=== PATIENT | male | born 1955 | race Hispanic/Latino ===

== ENCOUNTER 2017-01-15 06:21 | Observation (INO) | payer OTHER ==
[2017-01-15 06:37] VITALS: BMI 39.0
[2017-01-15] MEDS ORDERED: Lidocaine 1% w Epi 1:100,000 Inj ONE (07:12)
[2017-01-15] MEDS ORDERED: Thrombin Topical 5,000 IU Spray Kit ONE (07:12)
[2017-01-15] MEDS ORDERED: Bupivacaine 0.25%-Epinephrine 1:200,000 (30 ml) Inj ONE (07:12)
[2017-01-15] MEDS ORDERED: Bupivacaine 0.5% Inj(30mL) ONE (07:12)
[2017-01-15] MEDS ORDERED: Absorbable Gelatin Sponge Size 100 ONE (07:12)
[2017-01-15] MEDS ORDERED: Propofol 10 mg/ml Inj (20 ML) ONE ×11 (07:46→15:25)
[2017-01-15] MEDS ORDERED: Succinylcholine 200 mg/10 ml Inj IV ONE (07:47)
[2017-01-15] MEDS ORDERED: Midazolam 2 MG/2 ML VIAL ONE ×3 (07:47→12:27)
[2017-01-15] MEDS ORDERED: Lidocaine Hydrochloride 5 ML INJ ONE (07:49)
[2017-01-15] MEDS ORDERED: Remifentanil 2 MG PDS IV ONE ×5 (08:12→16:09)
[2017-01-15] MEDS ORDERED: Lactated Ringer's 1,000 ML IV ONE ×4 (08:30→13:49)
[2017-01-15] MEDS ORDERED: ePHEDrine 50 mg/ml Inj ONE (09:21)
[2017-01-15] MEDS ORDERED: Thrombin Topical 5,000 IU Spray Kit TOP ONE (11:39)
[2017-01-15] MEDS ORDERED: Absorbable Gelatin Sponge Size 100 TP ONE (11:39)
[2017-01-15] MEDS: Vancomycin 500 mg Inj IVPB ONE ×2 (12:15→16:45)
[2017-01-15] MEDS ORDERED: Desflurane Inhalation Anesthetic Liq (240 ml) ONE (13:07)
[2017-01-15] MEDS ORDERED: Dexamethasone 4 mg/1 ml ONE ×3 (13:14→17:16)
[2017-01-15] MEDS ORDERED: APROTININ/FIBRINOGEN(TISSEEL) ONE ×2 (13:32→13:46)
[2017-01-15] MEDS ORDERED: Sodium Chloride 0.9% 1,000 ML IV ONE ×2 (13:49→14:05)
[2017-01-15] MEDS ORDERED: Liquid Adhesive TOP ONE (14:01)
[2017-01-15] MEDS ORDERED: Sodium Chloride 0.9% 500 ML IV ONE (16:30)
[2017-01-15] MEDS ORDERED: Lidocaine 1% Inj (20ml) ONE (16:47)
--- NOTE | 2017-01-15 17:19 | RAD ---
PROCEDURE: Intraoperative Fluoroscopy. HISTORY: FUSION FINDINGS: Fluoroscopic assistance was provided. Please refer to the operative report for additional details.
[2017-01-15] MEDS ORDERED: HYDROmorphone 0.5 mg/0.5 ml ISec ONE (17:59)
[2017-01-15] MEDS: HYDROmorphone 0.5 mg/0.5 ml ISec IVP PRN ×4 (18:00→18:40)
[2017-01-15] MEDS ORDERED: Sodium Chloride 0.9% 1,000 ML IV SCH (18:15)
--- NOTE | 2017-01-15 18:24 | CP.PCM.PN ---
Objective - Vital Signs/Intake and Output Vital Signs (last 24 hours): Temp Pulse Resp BP Pulse Ox 98.1 F 87 18 123/74 18 L 01/15/17 07:12 01/15/17 07:12 01/15/17 07:06 01/15/17 07:12 01/15/17 07:12 Intake and Output: 01/15/17 01/15/17 06:59 18:59 Intake Total 5000 Output Total 1000 Balance 4000
--- NOTE | 2017-01-15 18:33 | CP.PCM.HP ---
History of Present Illness - History of Present Illness History of Present Illness: 61 yo male with history of DM2, HTN, HLD, Depression and MECCA had ACDF of C3-C7 today after failing conservative management for over 30 yrs. Patient had cervical and lumbar injuries while in the in the and has been suffering from constant pain in the cervical area associated with numbness on his left shoulder and hand. Over the years he underwent physical therapy, acupuncture, massage and stimulations with little effect. Pain medications and muscle relaxants afforded only temporary relief Present on Admission - Present on Admission Any Indicators Present on Admission: No History of DVT/PE: No History of Uncontrolled Diabetes: No Urinary Catheter: No Decubitus Ulcer Present: No Review of Systems - Review of Systems Systems not reviewed;Unavailable: Other (still sedated post operatively) Past Patient History - Tetanus Immunizations Tetanus Immunization: Unknown - Past Medical History & Family History Past Medical History?: Yes - Past Social History Smoking Status: Never Smoked - CARDIAC Hx Cardiac Disorders: Yes Hx Hypercholesterolemia: Yes Hx Hypertension: Yes - PULMONARY Hx Respiratory Disorders: Yes Hx Sleep Apnea: Yes (ON C-PAP MACHINE) - NEUROLOGICAL Hx Neurological Disorder: No - HEENT Hx HEENT Problems: No - RENAL Hx Chronic Kidney Disease: No - ENDOCRINE/METABOLIC Hx Endocrine Disorders: Yes Hx Diabetes Mellitus Type 2: Yes - HEMATOLOGICAL/ONCOLOGICAL Hx Blood Disorders: No Hx Anemia: No Hx Blood Transfusions: No - INTEGUMENTARY Hx Dermatological Problems: No - MUSCULOSKELETAL/RHEUMATOLOGICAL Hx Musculoskeletal Disorders: Yes Hx Arthritis: Yes Hx Back Pain: Yes Hx Falls: Yes - GASTROINTESTINAL Hx Gastrointestinal Disorders: No - GENITOURINARY/GYNECOLOGICAL Hx Genitourinary Disorders: No - PSYCHIATRIC Hx Emotional Abuse: No Hx Physical Abuse: No - SURGICAL HISTORY Hx Surgeries: Yes Other/Comment: CARPAL TUNNEL BILATERAL;KNEE SURGERY - ANESTHESIA Hx Anesthesia: Yes Hx Anesthesia Reactions: No Hx Malignant Hyperthermia: No Has any member of the family had a problem w/ anesthesia?: No Meds Allergies/Adverse Reactions: Allergies Allergy/AdvReac Type Severity Reaction Status Date / Time No Known Allergies Allergy Verified 01/13/17 10:47 Physical Exam - Constitutional Appears: Other (moaning in pain in PACU, morbidly obese) - Head Exam Head Exam: ATRAUMATIC - Eye Exam Eye Exam: absent: Scleral icterus - Neck Exam Neck exam: Negative for: Full Rom (neck collar intact and in placed) - Respiratory Exam Respiratory Exam: absent: Rhonchi, Wheezes, Respiratory Distress - Cardiovascular Exam Cardiovascular Exam: REGULAR RHYTHM, +S1, +S2 - GI/Abdominal Exam GI & Abdominal Exam: Soft. absent: Tenderness - Rectal Exam Rectal Exam: Deferred - Extremities Exam Extremities exam: Positive for: pedal pulses present - Neurological Exam Neurological exam: Altered (sedated post surgery) - Skin Skin Exam: Dry, Intact Results - Vital Signs Recent Vital Signs: Last Vital Signs Temp 98.1 F 01/15/17 07:12 Pulse 87 01/15/17 07:12 Resp 18 01/15/17 07:06 BP 123/74 01/15/17 07:12 Pulse Ox 18 L 01/15/17 07:12 - Labs Labs: Laboratory Results - last 24 hr 01/15/17 01/15/17 01/15/17 06:50 06:54 06:59 POC Glucose (mg/dL) 168 H Blood Type O POSITIVE Blood Type Confirm O POSITIVE Antibody Screen Negative BBK History Checked No verified bt Assessment & Plan (1) Cervical stenosis of spine Status: Acute Comment: S/P ACDF C3-C7. admit to telemetry. pain management via [employer]. Ancef 2 gm IV q 8hrs (2) HTN (hypertension) Status: Acute Comment: BP controlled. will restart with Lisinopril 5mg PO BID once fully awake. continue monitoring BP (3) DM2 (diabetes mellitus, type 2) Status: Acute Comment: accuchek ACHS with moderate Lispro coverage. HgA1C, BMP in am. will restart Metformin 500mg PO BID once fully awake
[2017-01-15] MEDS: Insulin Lispro (humaLOG) 100 Units/ml Inj SC SCH ×2 (22:51→22:55)
[2017-01-15] MEDS: ceFAZolin 2 GM in Sodium Chloride 0.9% 100 ML IVPB SCH (23:28)
[2017-01-16] MEDS: ceFAZolin 2 GM in Sodium Chloride 0.9% 100 ML IVPB SCH ×2 (01:14→10:01)
[2017-01-16] MEDS: Insulin Lispro (humaLOG) 100 Units/ml Inj SC SCH ×2 (06:45→12:00)
[2017-01-16 07:48] LABS: BASO % 0.1 % (0.0-2.0); HEMATOCRIT 37.1 % (35.0-51.0); LYMPH # 1.3 K/uL (1.0-4.3); LYMPH % 7.8 % (20.0-40.0); MEAN CELL VOLUME 89.4 fl (80.0-94.0); MEAN CORPUSCULAR HEMOGLOBIN 31.4 pg (27.0-31.0); MEAN CORPUSCULAR HGB CONC 35.1 g/dL (33.0-37.0); MEAN PLATELET VOLUME 7.9 fl (7.2-11.7); MONO # 1.3 K/uL (0.0-0.8); MONO % 8.2 % (0.0-10.0); NEUT # 13.5 K/uL (1.8-7.0); NEUT % 83.9 % (50.0-75.0); PLATELET COUNT 262 K/uL (130-400); RED CELL DISTRIBUTION WIDTH 12.8 % (11.5-14.5); WHITE BLOOD COUNT 16.1 K/uL (4.8-10.8)
[2017-01-16 07:54] LABS: ALB/GLOB RATIO 1.3 (1.0-2.1); ALKALINE PHOSPHATASE 56 U/L (38-126); ALT/SGPT 75 U/L (21-72); AST/SGOT 142 U/L (17-59); BILIRUBIN,TOTAL 0.6 mg/dl (0.2-1.3); BLOOD UREA NITROGEN 14 mg/dl (9-20); GFR AFRICAN-AMERICAN > 60; GLUCOSE,RANDOM 245 mg/dL (75-110); TOTAL PROTEIN 6.9 G/DL (6.3-8.2)
[2017-01-16 08:13] VITALS: RESP 18
[2017-01-16 08:53] LABS: CARBON DIOXIDE 26 mmol/L (22-30); CHLORIDE 105 mmol/L (98-107); SODIUM 140 mmol/l (132-148)
[2017-01-16] MEDS ORDERED: Omega-3-Acid Ethyl Esters 1 GM Cap PO SCH (09:00)
[2017-01-16] MEDS ORDERED: Multivitamin With Minerals Tab PO SCH (09:00)
[2017-01-16 11:34] LABS: LARGE PLATELETS PRESENT; NEUTROPHIL 80 % (42-75); TOTAL CELLS COUNTED 100
[2017-01-16 12:49] VITALS: BP 153/91; PULSE 100; TEMP 97.6; O2SAT 97
--- NOTE | 2017-01-16 14:19 | CP.PCM.DIS ---
Provider - Provider Date of Admission: 01/15/17 17:47 Attending physician: Cosmo Arceo MD Primary care physician: Cosmo Arceo MD Consults: spine surgery PT Time Spent in preparation of Discharge (in minutes): 20 Diagnosis - Discharge Diagnosis (1) Obesity (BMI 35.0-39.9 without comorbidity) Status: Acute Hospital Course - Lab Results Lab Results: Most Recent Lab Values WBC 16.1 K/uL (4.8-10.8) H 01/16/17 06:00 RBC 4.15 Mil/uL (4.40-5.90) L 01/16/17 06:00 Hgb 13.0 g/dL (12.0-18.0) 01/16/17 06:00 Hct 37.1 % (35.0-51.0) 01/16/17 06:00 MCV 89.4 fl (80.0-94.0) 01/16/17 06:00 MCH 31.4 pg (27.0-31.0) H 01/16/17 06:00 MCHC 35.1 g/dL (33.0-37.0) 01/16/17 06:00 RDW 12.8 % (11.5-14.5) 01/16/17 06:00 Plt Count 262 K/uL (130-400) 01/16/17 06:00 MPV 7.9 fl (7.2-11.7) 01/16/17 06:00 Neut % (Auto) 83.9 % (50.0-75.0) H 01/16/17 06:00 Lymph % (Auto) 7.8 % (20.0-40.0) L 01/16/17 06:00 Toole % (Auto) 8.2 % (0.0-10.0) 01/16/17 06:00 Eos % (Auto) 0.0 % (0.0-4.0) 01/16/17 06:00 Baso % (Auto) 0.1 % (0.0-2.0) 01/16/17 06:00 Neut # 13.5 K/uL (1.8-7.0) H 01/16/17 06:00 Lymph # 1.3 K/uL (1.0-4.3) 01/16/17 06:00 Toole # 1.3 K/uL (0.0-0.8) H 01/16/17 06:00 Eos # 0.0 K/uL (0.0-0.7) 01/16/17 06:00 Baso # 0.0 K/uL (0.0-0.2) 01/16/17 06:00 Neutrophils % (Manual) 80 % (42-75) H 01/16/17 06:00 Band Neutrophils % 2 % (0-2) 01/16/17 06:00 Lymphocytes % (Manual) 8 % (20-50) L 01/16/17 06:00 Monocytes % (Manual) 10 % (0-10) 01/16/17 06:00 Platelet Estimate Normal (NORMAL) 01/16/17 06:00 Large Platelets Present 01/16/17 06:00 Sodium 140 mmol/l (132-148) 01/16/17 06:00 Potassium 4.0 MMOL/L (3.6-5.0) 01/16/17 06:00 Chloride 105 mmol/L (98-107) 01/16/17 06:00 Carbon Dioxide 26 mmol/L (22-30) 01/16/17 06:00 Anion Gap 13 (10-20) 01/16/17 06:00 BUN 14 mg/dl (9-20) 01/16/17 06:00 Creatinine 0.8 mg/dL (0.8-1.5) 01/16/17 06:00 Est GFR ( Amer) > 60 01/16/17 06:00 Est GFR (Non-Af Amer) > 60 01/16/17 06:00 POC Glucose (mg/dL) 160 mg/dL (65-110) H 01/16/17 11:16 Random Glucose 245 mg/dL (75-110) H 01/16/17 06:00 Calcium 9.0 mg/dL (8.4-10.2) 01/16/17 06:00 Total Bilirubin 0.6 mg/dl (0.2-1.3) 01/16/17 06:00 AST 142 U/L (17-59) H 01/16/17 06:00 ALT 75 U/L (21-72) H 01/16/17 06:00 Alkaline Phosphatase 56 U/L (38-126) 01/16/17 06:00 Total Protein 6.9 G/DL (6.3-8.2) 01/16/17 06:00 Albumin 3.8 g/dL (3.5-5.0) 01/16/17 06:00 Globulin 3.0 gm/dL (2.2-3.9) 01/16/17 06:00 Albumin/Globulin Ratio 1.3 (1.0-2.1) 01/16/17 06:00 Blood Type O POSITIVE 01/15/17 06:59 Blood Type Confirm O POSITIVE 01/15/17 06:50 Antibody Screen Negative 01/15/17 06:59 BBK History Checked No verified bt 01/15/17 06:59 - Hospital Course Hospital Course: 61 yo male with history of DM2, HTN, HLD, Depression and MECCA had ACDF of C3-C7 after failing conservative management for over 30 yrs. Patient had cervical and lumbar injuries while in the in the and has been suffering from constant pain in the cervical area associated with numbness on his left shoulder and hand. Over the years he underwent physical therapy, acupuncture, massage and stimulations with little effect. Pain medications and muscle relaxants afforded only temporary relief Post op was placed under observation and started on [employer] pump for pain control. received 3 doses of Ancef IV prophylactically . Pain is controlled patient hemodynamically stable Pt eval apprecaited . patient ambulating well patient evaluated by spine surgeon Dr. Berry post op and cleared for discharge. Will d/c patient home Follow up with Dr. Berry in 1week Keep collar on patient has pain medication at home so npo prescriptions provided. 1. Cervical stenosis of spine S/P ACDF C3-C7. given Ancef 2 g iV q8 x 3 doses Keep collar on continue pain medication 2. HTN (hypertension) BP controlled. on Lisinopril 5mg PO BID 3. DM2 (diabetes mellitus, type 2) controlled accuchek ACHS with moderate Lispro coverage Metformin 500mg PO BID 4. Obesity BMI 39 5. Leukocytosis most likely reactive Discharge Exam - Head Exam Head Exam: ATRAUMATIC, NORMOCEPHALIC - Eye Exam Eye Exam: EOMI, Normal appearance, PERRL Pupil Exam: NORMAL ACCOMODATION - ENT Exam ENT Exam: Mucous Membranes Moist, Normal Exam - Neck Exam Neck exam: Full Rom Additional comments: anterior neck steri strips in place , clean - Respiratory Exam Respiratory Exam: Clear to PA & Lateral, NORMAL BREATHING PATTERN. absent: Rales, Rhonchi, Wheezes - Cardiovascular Exam Cardiovascular Exam: REGULAR RHYTHM, RRR, +S1, +S2. absent: JVD - GI/Abdominal Exam GI & Abdominal Exam: Normal Bowel Sounds, Soft. absent: Distended, Guarding, Rebound, Tenderness - Rectal Exam Rectal Exam: Deferred - Extremities Exam Extremities exam: normal capillary refill, normal inspection, pedal pulses present - Back Exam Back exam: NORMAL INSPECTION - Neurological Exam Neurological exam: Alert, CN II-XII Intact, Oriented x3, Reflexes Normal - Psychiatric Exam Psychiatric exam: Normal Affect, Normal Mood - Skin Skin Exam: Dry, Intact, Normal Color, Warm Discharge Plan - Follow Up Plan Condition: GOOD Disposition: HOME/ ROUTINE Patient education suggested?: Yes Instructions: Anterior Cervical Discectomy (DC) Additional Instructions: Please follow up with Dr. Arceo in 1 week. Resume home medications and continue with cervical collar at all times. If experience fever, chills, acute pain at the surgical site return to the Emergency room. Referrals: Cosmo Arceo MD [Primary Care Provider] -
== END 2017-01-16 15:25 | disposition home or self-care (01) ==
LOC: H.OPSURG 06:21 → H.TEL 17:47 → INTOOBSV 17:47
PROVIDERS: ADMIT Orthopaedic Surgery Orthopaedic Surgery of the Spine; ATTEND Orthopaedic Surgery Orthopaedic Surgery of the Spine
DX: M50.021 Cervical disc disorder at C4-C5 level with myelopathy (principal); M50.121 Cervical disc disorder at C4-C5 level with radiculopathy; M48.02 Spinal stenosis, cervical region; E11.9 Type 2 diabetes mellitus without complications; D72.829 Elevated white blood cell count, unspecified; G47.33 Obstructive sleep apnea (adult) (pediatric); E78.5 Hyperlipidemia, unspecified; I10 Essential (primary) hypertension; E66.9 Obesity, unspecified; Z68.39 Body mass index [BMI] 39.0-39.9, adult
CPT/HCPCS: 20931; 22551; 22552; 22853; 36415; 63015; 76001; 80053; 82948; 83036; 85025; 85027; 86850; 86900; 88304; 94660; 97161; C1713; G0378; G8978; G8979; G8980; J0330; J0690; J1100; J1170; J2250; J2704; J3010; J3370; J7030; J7040; J7120